=== PATIENT | female | born 1955 | race African-American/Black ===

== ENCOUNTER 2016-04-27 09:33 | Emergency (ER) | payer MEDICARE ==
[2016-04-27 09:49] VITALS: TEMP 97.9; BMI 42.8
[2016-04-27] MEDS ORDERED: METOPROLOL TARTRATE 25 MG TAB PO ONE (09:57)
[2016-04-27] MEDS ORDERED: LISINOPRIL 20 MG TAB PO ONE (09:58)
--- NOTE | 2016-04-27 10:33 | DIRPT ---
CLINICAL DATA: Cough and congestion for 1 week. Initial encounter. EXAM: CHEST 2 VIEW COMPARISON: PA and lateral chest 05/10/2015. FINDINGS: The lungs are clear. Heart size is normal. There is no pneumothorax or pleural effusion. No focal bony abnormality. IMPRESSION: Negative chest. Electronically Signed By: Lucian Sanchez M.D. On: 04/27/2016 10:30
[2016-04-27] MEDS ORDERED: ACETAMINOPHEN WITH CODEINE 5 ML UDC PO ONE (10:40)
[2016-04-27] MEDS ORDERED: TUSSIONEX 5 ML ORAL SYRINGE PO ONE (10:45)
--- NOTE | 2016-04-27 11:00 | EDPRACDOC ---
- General Information Chief Complaint: Flu-Like Symptoms Stated Complaint: COUGH/ FEVER Time Seen by Provider: 04/27/16 10:16 Information Source: Patient Mode Of Arrival: Car Home Medications: Home Medications Aclidinium [place] [Tudorza Pressair] 1 puff IH TID 11/14/14 Omeprazole 20 mg PO DAILY #30 tablet. 11/15/14 Albuterol Sulfate 1.25 mg NEB Q4-6H PRN 02/22/15 Escitalopram Oxalate [Lexapro] 5 mg PO DAILY 02/22/15 Fluticasone/Vilanterol [Breo Ellipta 100-25 Mcg INH] 1 each IH DAILY 02/22/15 Metoprolol Tartrate 12.5 mg PO BID 02/23/15 Ibuprofen Tablet [Motrin] 600 mg PO Q8H PRN #30 tab 03/02/15 Oxycodone Immediate Release [Oxy-Ir] 5 mg PO Q4H PRN #40 tab 03/02/15 Promethazine HCl [Phenergan] 12.5 mg PO Q6 PRN #30 tablet 03/02/15 Azithromycin [Zithromax] 250 mg PO DAILY #6 tablet 04/27/16 Hydrocodone Bit/Homatropine [Hycodan Syrup] 5 ml PO Q6 #180 syrup 04/27/16 Prednisone [Deltasone, Orasone] 2 tabs PO DAILY #20 tab 04/27/16 Allergies/Adverse Reactions: Allergies Allergy/AdvReac Type Severity Reaction Status Date / Time No Known Allergies Allergy Verified 04/27/16 09:45 - History of Present Illness Symptoms Started: 2 DAYS HPI: PT PRESENTS TODAY WITH 2 DAYS OF COUGH/CONGESTION AND INTERMITTENT FEVER. PT STATES SHE IS UNABLE TO REST AT NIGHT D/T COUGH. PT HAS COPD. PT IN NO APPARENT DISTRESS AT THIS TIME. DENIES RIVERA, DIZZINESS, CP, SHOB, ABD PAIN, N/V/ D. Symptoms: Reports: Cough, Fever, Nasal Symptoms Recent Medications: Reports: None Relevant History Of: Reports: COPD Shortness of Breath: None Cough Frequency: Persistent Cough Description: Reports: Productive, Strong, Congested Rhinorrhea: Reports: Clear Ear Symptoms: Reports: None Associated Signs and Symptoms: Reports: Cough, Fever, Nasal Symptoms ED Past Medical History - History Reviewed Yes Nurses notes reviewed and agree except as marked - Patient Medical History Cardiac History: Reports: Hypertension, Hypercholesterolemia Respiratory History: Reports: Asthma, COPD, Chronic Bronchitis, Pneumonia GI/ History: Reports: Kidney Stones (with stent), Ulcer Musculoskeletal History: Reports: Arthritis (RA back), Rheumatoid Arthritis Psychological History: Reports: Anxiety Systemic History: Reports: Anemia, Diabetes. Denies: Cancer Surgical History: Reports: Cholecystectomy (2012), Hysterectomy - Family Medical History Reports: Hypertension (parents), Diabetes (parents), Cancer (3 aunt, uncle), Stroke (mother), Cardiac Disorders (parents) - Social Medical History Smoking Status: Former smoker EDM Review of Systems - Review of Systems ROS Negative Except as Marked: Yes All systems reviewed and were negative except as marked Constitutional: Fever, Fatigue Ears: No Symptoms Reported Throat: No Symptoms Reported Nose: Congestion Respiratory: Cough Cardiovascular: No Symptoms Reported Gastrointestinal: No Symptoms Reported Neurological: No Symptoms Reported Musculoskeletal: No Symptoms Reported Integumentary: No Symptoms Reported - Physical Exam Constitutional: Alert (Awake), No apparent distress Oriented to: Time, Person, Place Last recorded Vital Signs: Last Vital Signs Temp 97.9 F 04/27/16 09:45 Pulse 77 04/27/16 09:45 Resp 22 04/27/16 09:45 BP 224/122 H 04/27/16 09:45 Pulse Ox 96 04/27/16 09:45 Oxygen Pulse Oxygen Saturation 96 O2 Device Oxygen Flow Rate Fraction of Inspired Oxygen ( FIO2) - HEENT Head: Normal Eye Exam: Normal Oropharynx: Red Tympanic Membrane: Normal ENT EAC: Normal Nose: Congestion Neck: Normal, Denies Pain, Midline - Respiratory/Cardiovascular Respiratory: Normal - CTA Cardiovascular: Normal - GI Palpation: Normal Tenderness: Non tender - Musculoskeletal Back: Normal Extremities: Normal - Integumentary Skin: Normal Lymphatics: Normal - Neurologic Cerebellar: Normal Mood Description: Normal Thought: Coherent Perception: Normal - Additional Information NOTED PTS ELEVATED BP; PT HAS NO ASSOCIATED SYMPTOMS WITH THIS. PT STATES THAT SHE HAS BEEN NON-COMPLIANT WITH BP MEDICATIONS AND IS ALSO TAKING OTC COUGH SYRUP WITH DM. Decision Time to Discharge: 10:50 - Departure Disposition: Home Condition: Good Final Diagnosis: Acute upper respiratory infection Instructions: Upper Respiratory Infection (ED) Education/Counseling Given To: Patient, Family Member Education/Counseling Given Regarding: Diagnosis, Treatment, Follow Up Referrals: Benjy Will MD [Primary Care Provider] - One Week Prescriptions: Azithromycin [Zithromax] 250 mg PO DAILY #6 tablet Hydrocodone Bit/Homatropine [Hycodan Syrup] 5 ml PO Q6 #180 syrup Prednisone [Deltasone, Orasone] 2 tabs PO DAILY #20 tab Additional Instructions: REST AND PLENTY OF FLUIDS. FOLLOW UP WITH PCP IN 2-3 DAYS IF NEEDED OR FEEL FREE TO RETURN TO ED AT ANY POINT.
[2016-04-27 11:14] VITALS: BP 205/95; PULSE 62
== END 2016-04-27 11:08 | disposition home or self-care (01) ==
LOC: ED 09:33
DX: J06.9 Acute upper respiratory infection, unspecified (principal); I10 Essential (primary) hypertension; E78.00 Pure hypercholesterolemia, unspecified; J44.9 Chronic obstructive pulmonary disease, unspecified; J45.909 Unspecified asthma, uncomplicated; F41.9 Anxiety disorder, unspecified; E11.9 Type 2 diabetes mellitus without complications; Z79.899 Other long term (current) drug therapy; Z91.14 Patient's other noncompliance with medication regimen
CPT/HCPCS: 71020; 99283; A9270; J3490